=== PATIENT | female | born 2005 | race Caucasian/White ===

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

== ENCOUNTER 2024-01-11 13:47 | Outpatient (CLI) | payer MEDICAID, SELFPAY ==
--- NOTE | 2024-01-11 13:55 | XR_ITS ---
FINAL REPORT CLINICAL HISTORY: Fracture f/u COMPARISON: 02/04/2019 FINDINGS: LEFT ANKLE: Three views of the left ankle were obtained. There is no acute fracture or dislocation. The joint spaces and mortise are intact. There is no soft tissue abnormality. IMPRESSION: No acute bony abnormality. Reviewed, Interpreted and Dictated by Jose Ornelas MD Transcribed by Paris Sutherland Authenticated and [facility]
== END 2024-01-11 23:59 ==
LOC: RAD 13:50
PROVIDERS: PCP Pediatrics; Visit Provider Nurse Practitioner
DX: M25.572 Pain in left ankle and joints of left foot (principal)
CPT/HCPCS: 73610

== ENCOUNTER 2024-02-09 14:52 | Outpatient (CLI) | payer MEDICAID, SELFPAY ==
--- NOTE | 2024-02-09 14:56 | MR_ITS ---
FINAL REPORT CLINICAL HISTORY: ankle sprain. LATERAL SIFDED ANKLE PAIN. PATIENT FELL AND TWISTED ANKLE. HEARD A POP 1 MONTH AGO. FINDINGS: Multiplanar MR imaging of the left ankle was performed without contrast. No acute fracture is identified. There are sclerotic foci in the talus and calcaneus, favor to represent bone islands. No osteochondral lesion is identified. The ligaments are intact without evidence of injury. There is posterior tibial tenosynovitis. The posterior plantar aponeurosis is intact. No significant joint effusion is seen. The musculature is intact. There is no evidence of soft tissue mass or cyst. IMPRESSION: Favor bone islands in the talus and calcaneus. Posterior tibial tenosynovitis. Reviewed, Interpreted and Dictated by Ziggy Orantes III, MD Transcribed by Tamara Kelly Authenticated and [facility]
== END 2024-02-09 23:59 ==
LOC: RAD 14:53
PROVIDERS: PCP Pediatrics; Visit Provider Nurse Practitioner
DX: M25.572 Pain in left ankle and joints of left foot (principal); M79.672 Pain in left foot; S93.402D Sprain of unspecified ligament of left ankle, subsequent encounter; S96.912A Strain of unspecified muscle and tendon at ankle and foot level, left foot, initial encounter
CPT/HCPCS: 73721

== ENCOUNTER 2024-05-16 07:59 | Emergency (ER) | payer MEDICAID, SELFPAY ==
[2024-05-16 08:05] VITALS: BP 108/60; PULSE 107; RESP 19; TEMP 36.8; O2SAT 98; BMI 23.6
--- NOTE | 2024-05-16 08:21 | ED_ITS ---
Discharge Plan Disposition Patient Disposition: Home, Self-Care Condition: Good Prescriptions Prescriptions: New elpcgszvpuniutx-[id number]-GD [Bromfed DM] 2-30-10 mg/5 mL syrup 10 ml PO Q4-6H PRN (Reason: cough/sinus symptoms) Qty: 200 0RF No Action medroxyprogesterone [Depo-Provera Contraceptive] 150 mg/mL Suspension 1 mg IM DIRECTED Referrals Follow up/Referrals: Shahid Jensen [Primary Care Provider] - See instructions Activity Restrictions/Add. Instructions Additional Instructions/Restrictions: Take medication as prescribed. If symptoms persist or worse, return to clinic or go to PCP. Clinical Impressions Clinical Impression: Acute upper respiratory infection Instructions Patient Instructions: DI for Viral Upper Respiratory Infection -- Adult Discharge ED Provider: Shaila Mandel [facility] General Stated complaint: sore throat, runny nose Mode of Arrival: Ambulatory Source of Information: Patient Limitations: No Limitations Time Seen by Provider: 05/16/24 08:15 Description of Symptoms (Recalled from Triage Doc. by RN): PATIENT C/O SORE THROAT, RUNNY NOSE AND COUGH THAT STARTED MONDAY NIGHT HEENT Symptoms (Recalled from RN notes): Yes Resp Symptoms (Recalled from RN notes): Yes Skin Symptoms (Recalled from RN notes): No MS Symptoms (Recalled from RN notes): No Functional Status (Recalled from RN notes): WNL History of Present Illness Provider Complaint: Pt reports a sore throat, cough, and runny nose that has progressively gotten worse since Monday. She states that she has been taking allergy medication for her symptoms. Related Data Home Medications Medication Instructions Recorded Confirmed medroxyprogesterone 150 mg/mL 1 mg IM DIRECTED b/c 11/29/23 05/16/24 intramuscular suspension Previous Rx's Medication Instructions Recorded kfvlpfmjpkyqudk-lvjybhvkucbkyba-UL 10 ml PO Q4-6H PRN cough/sinus 05/16/24 2 mg-30 mg-10 mg/5 mL oral syrup symptoms #200 mL (Bromfed DM) Allergies Allergy/AdvReac Type Severity Reaction Status Date / Time No Known Allergies Allergy Verified 02/19/24 10:51 Worker's Comp Is this a Worker's Comp case?: No [facility] Disclaimer: The information contained in this section may have been updated after the patient was seen, as this information can be updated by other users. Medical History (Updated 05/16/24 @ 08:25 by Shaila Mandel APRN) Depression Anxiety Migraine Surgical History (Updated 05/16/24 @ 08:14 by Sanjana Balbuena RN) History of tympanostomy tube placement Social History Smoking Status: Never smoker alcohol intake: never current occupational status: student Travel in the last 8 weeks: None current occupation: student ROS Obtained: Yes All systems reviewed & no additional complaints except as documented Constitutional Constitutional: Reports system reviewed and no additional complaints, except as documented and Reports malaise Eyes Eyes: Reports system reviewed and no additional complaints, except as documented ENT Ears, Nose, Mouth, and Throat: Reports system reviewed and no additional complaints, except as documented, Reports nasal discharge, Reports odynophagia, Reports post nasal drip and Reports sore throat Cardiovascular Cardiovascular: Reports system reviewed and no additional complaints, except as documented Respiratory Respiratory: Reports system reviewed and no additional complaints, except as documented and Reports cough Gastrointestinal Gastrointestingal: Reports system reviewed and no additional complaints, except as documented and odynophagia Genitourinary Female Genitourinary: Reports system reviewed and no additional complaints, except as documented Musculoskeletal Musculoskeletal: Reports system reviewed and no additional complaints, except as documented Integumentary/Breasts Skin/Breast: Reports system reviewed and no additional complaints, except as documented Neurologic Neurologic: Reports system reviewed and no additional complaints, except as documented Endocrine Endocrine: Reports system reviewed and no additional complaints, except as documented Hematologic/Lymphatic Henatologic/Lymphatic: Reports system reviewed and no additional complaints, except as documented Allergic/Immunologic Allergic/Immunologic: Reports system reviewed and no additional complaints, except as documented Physical Exam General General appearance: alert and in no apparent distress Head Head exam: atraumatic and normocephalic Eye Eye exam: Present normal appearance ENT ENT exam: Present mucous membranes moist Expanded ENT Exam External ear exam: Present normal external inspection Nose exam: Absent sinus tenderness Nasal speculum exam: Bilateral: other (clear drainage noted) Mouth exam: Present normal external inspection Teeth exam: Present normal inspection Throat exam: Present tonsillar erythema and tonsillomegaly Neck Neck exam: Present normal inspection and lymphadenopathy Chest Chest inspection: Present normal inspection and symmetric chest wall rise Respiratory Respiratory exam: Present normal lung sounds bilaterally Cardiovascular Cardiovascular exam: Present regular rate and normal rhythm Abdominal Exam Abdominal exam: Present soft and normal bowel sounds Extremities Exam Extremities exam: Present normal inspection Back Exam Back exam: Present normal inspection Neurological Exam Neurological exam: Present alert and oriented X3 Psychiatric Psychiatric exam: Present normal affect and normal mood Skin Skin exam: Present warm, dry and intact Lymphatic Lymphatic Findings: no adenopathy Medical Decision Making Miguel Inquiry Pt receiving controlled substance: No Miguel was queried for this patient: No Vital Signs: 05/16/24 08:05 Temperature 98.2 F Temperature Source Oral Pulse Rate [Left Brachial] 107 H Respiratory Rate 19 Blood Pressure [Left Arm] 108/60 L Blood Pressure Mean [Left Arm] 76 Blood Pressure Source [Left Arm] Automatic Cuff Blood Pressure Position [Left Arm] Sitting 02 Sat by Pulse Oximetry 98 Oxygen Delivery Method Room Air
[2024-05-16 08:24] LABS: UTC Strep Screen (Rapid) Negative (Negative)
[2024-05-16 08:25] VITALS: BP 108/60; PULSE 107; RESP 19; TEMP 36.8; O2SAT 98
--- NOTE | 2024-05-18 08:48 | PC.NURSE ---
Reviewed strep confirmation results which is negative. No further action is required.
== END 2024-05-16 08:29 | disposition home or self-care (01) ==
PROVIDERS: Emergency Provider Nurse Practitioner Family; PCP Pediatrics
DX: R05.9 Cough, unspecified (principal); J06.9 Acute upper respiratory infection, unspecified
CPT/HCPCS: 87880; 99212; 99214; G0463

== ENCOUNTER 2024-06-29 18:57 | Emergency (ER) | payer BC, SELFPAY ==
--- NOTE | 2024-06-29 19:14 | XR_ITS ---
PROCEDURE INFORMATION: Exam: XR Left Elbow Exam date and time: 06/29/2024 7:10 PM Age: 18 years old Clinical indication: Pain; Elbow; Left TECHNIQUE: Imaging protocol: Radiologic exam of the left elbow. Views: 3 or more views. Total images: 3 COMPARISON: No relevant prior studies available. FINDINGS: Bones/joints: No acute fracture, joint dislocation, or joint effusion. Unremarkable joint spaces. No concerning bone lesions or calcifications. Soft tissues: Unremarkable soft tissues. IMPRESSION: Negative left elbow.
[2024-06-29 19:25] VITALS: BP 144/78; PULSE 108; RESP 18; TEMP 36.7; O2SAT 98; BMI 20.5
--- NOTE | 2024-06-29 19:47 | EXP.UTC ---
Discharge Plan Disposition Patient Disposition: Home, Self-Care Condition: Good Prescriptions Prescriptions: No Action medroxyprogesterone [Depo-Provera Contraceptive] 150 mg/mL Suspension 1 mg IM DIRECTED Referrals Follow up/Referrals: Shahid Jensen [Primary Care Provider] - See instructions Activity Restrictions/Add. Instructions Additional Instructions/Restrictions: sprain- rest Ice with cold pack for 20 minutes remove may repeat for comfort every hour beverley for support and swelling no less in the shower. Be sure not too tight but not to lose either Elevate with arm above your heart as much as possible to help reduce swelling and therefore pain Ibuprofen every 6 hours as needed for pain or inflammation. If needs something more you can take Tylenol every 4 hours as needed as long as her primary care has told he was okayed for you to take both. Follow-up immediately if new or worsening symptoms or no noticeable improvement over the next 3-5 days. call ortho if no improvement Clinical Impressions Clinical Impression: Elbow strain Instructions Patient Instructions: DI for Elbow Sprain Print Language Print Language: Malay Discharge ED Provider: Heather ([facility] [place] General Stated complaint: AO 06-29-24 hit elbow on wall left elbow hurts Mode of Arrival: Ambulatory Source of Information: Patient Limitations: No Limitations Time Seen by Provider: 06/29/24 19:30 Description of Symptoms (Recalled from Triage Doc. by RN): PATIENT C/O PAIN TO LEFT ELBOW AFTER HITTING IT ON THE CORNER OF THE WALL THIS AFTERNOON HEENT Symptoms (Recalled from RN notes): No Resp Symptoms (Recalled from RN notes): No Skin Symptoms (Recalled from RN notes): No MS Symptoms (Recalled from RN notes): Yes Functional Status (Recalled from RN notes): WNL History of Present Illness Provider Complaint: 18 yr old female presents for c/o hit elbow on wall and left elbow hurts Related Data Home Medications ?Medication ?Instructions ?Recorded ?Confirmed medroxyprogesterone 150 mg/mL 1 mg IM DIRECTED b/c 11/29/23 06/29/24 intramuscular suspension Allergies Allergy/AdvReac Type Severity Reaction Status Date / Time No Known Allergies Allergy Verified 02/19/24 10:51 Worker's Comp Is this a Worker's Comp case?: No [facility] Disclaimer: The information contained in this section may have been updated after the patient was seen, as this information can be updated by other users. Medical History (Reviewed 06/29/24 @ 19:57 by Gabriel Romero ([facility]), CAREER [employer]ERY TEACHER) Depression Anxiety Migraine Surgical History (Reviewed 06/29/24 @ 19:57 by Gabriel Romero ([facility]), CAREER DISCOVERY TEACHER) History of tympanostomy tube placement Social History (Reviewed 06/29/24 @ 19:57 by [facility] CAREER DISCOVERY TEACHER) Smoking Status: Never smoker alcohol intake: never current occupational status: student Travel in the last 8 weeks: None current occupation: student ROS Obtained: Yes All systems reviewed & no additional complaints except as documented Constitutional Constitutional: Reports system reviewed and no additional complaints, except as documented Eyes Eyes: Reports system reviewed and no additional complaints, except as documented ENT Ears, Nose, Mouth, and Throat: Reports system reviewed and no additional complaints, except as documented Cardiovascular Cardiovascular: Reports system reviewed and no additional complaints, except as documented Respiratory Respiratory: Reports system reviewed and no additional complaints, except as documented Gastrointestinal Gastrointestingal: Reports system reviewed and no additional complaints, except as documented Musculoskeletal Musculoskeletal: Reports system reviewed and no additional complaints, except as documented, Reports as per HPI, Reports arthralgias, Reports joint swelling, Reports limited range of motion and Reports radiating pain into limb Integumentary/Breasts Skin/Breast: Reports system reviewed and no additional complaints, except as documented Endocrine Endocrine: Reports system reviewed and no additional complaints, except as documented Hematologic/Lymphatic Henatologic/Lymphatic: Reports system reviewed and no additional complaints, except as documented Allergic/Immunologic Allergic/Immunologic: Reports system reviewed and no additional complaints, except as documented Physical Exam General General appearance: alert and in no apparent distress Head Head exam: atraumatic Eye Eye exam: Present normal appearance and PERRL ENT ENT exam: Present normal exam, normal oropharynx, mucous membranes moist and TM's normal bilaterally Respiratory Respiratory exam: Present normal lung sounds bilaterally Cardiovascular Cardiovascular exam: Present regular rate and normal rhythm Expanded Upper Extremity Exam Left: Elbow exam: Present full ROM, tenderness, swelling, ecchymosis and tenderness over radial head Neurological Exam Neurological exam: Present alert and oriented X3 Skin Skin exam: Present warm and intact Medical Decision Making Medical Records Medical records reviewed: Yes I reviewed the patient's medical records. Miguel Inquiry Pt receiving controlled substance: No Miguel was queried for this patient: No Vital Signs: 06/29/24 19:25 Temperature 98.1 F Temperature Source Oral Pulse Rate [Right Brachial] 108 H Respiratory Rate 18 Blood Pressure [Right Arm] 144/78 H Blood Pressure Mean [Right Arm] 100 Blood Pressure Source [Right Arm] Automatic Cuff Blood Pressure Position [Right Arm] Sitting 02 Sat by Pulse Oximetry 98 Oxygen Delivery Method Room Air Orders (Tests/Meds): ORDERS Category Date Time Status Elbow XR left mininum 3 views [XR elbow LT min 3V] Stat Exams 06/29/24 19:14 Taken Radiology Data #1: Image(s): Elbow Image Reviewed: Yes I have reviewed radiologist's interpretation Preliminary Findings: Normal/NAD
[2024-06-29 19:57] VITALS: BP 144/78; PULSE 108; RESP 18; TEMP 36.7; O2SAT 98
== END 2024-06-29 20:04 | disposition home or self-care (01) ==
PROVIDERS: Emergency Provider Nurse Practitioner Family; PCP Pediatrics
DX: S56.912A Strain of unspecified muscles, fascia and tendons at forearm level, left arm, initial encounter (principal); M25.522 Pain in left elbow; W22.8XXA Striking against or struck by other objects, initial encounter
CPT/HCPCS: 73080; 99212; 99213; 99214; G0463

== ENCOUNTER 2025-05-25 19:27 | Emergency (ER) | payer BC, SELFPAY ==
--- OUTSIDE RECORDS SUMMARY | 2025-05-25 19:33 | XMS_ITS | Data Portability ---
[facility] Organization [facility] Address [address] [place] [address] Assessment No assessment recorded. Plan of Treatment Reminders Order Date Submit Date Provider Last Modified By Organization Details Last Modified Time Details Appointments None recorded. Lab test, urine [address], [address], 4 17:30:55 test, urine [address], [address], 4 10:31:46 lipid panel, serum 2023 024 [facility], [address], [place], [address], 4 11:50:05 CMP, serum or plasma 2023 024 [facility], [address], [place], [address], 4 11:50:06 CBC w/ auto diff 2023 024 [facility], [address], [place], [address], 4 11:50:06 TSH, serum or plasma 2023 024 [facility], [address], [place], [address], 4 11:50:07 vitamin D, 25-hydroxy, total, serum 2023 024 [facility], [address], [place], [address], 4 11:50:07 iron + TIBC + ferritin, serum 2023 024 [facility], [address], [place], [address], 4 11:50:05 test, urine [address], [address] [place] [address], [address], 4 17:10:07 test, urine [address], [address] [place] [address], [address], 3 18:18:41 test, urine [address], [address] [place] [address], [address], 3 17:36:07 CT + NG RNA, PCR, unspecified specimen 2022 023 [facility], [address], [place], [address], 3 22:19:55 Referral None recorded. Procedures None recorded. Surgeries None recorded. Imaging None recorded. Medication Orders medroxyprog esterone 150 mg/mL intramuscul ar suspension 2023 024 [email or web address] Not available 4 17:30:55 medroxyprog esterone 150 mg/mL intramuscul ar suspension 2023 024 [facility], [address] [place] [address], [id number], 4 10:31:46 medroxyprog esterone 150 mg/mL intramuscul ar suspension 2023 024 [email or web address] 1 [facility], [address] [place] [address], [id number], 4 17:30:58 sumatriptan 50 mg tablet 2022 023 TOMI [facility], [address] [place] [address], [id number], 3 15:29:45 medroxyprog esterone 150 mg/mL intramuscul ar suspension 2022 023 [email or web address] Not available 3 18:18:41 Depo-Dining Car Steward a 150 mg/mL intramuscul ar syringe 2022 023 [email or web address] 1 [facility], [address] [place] [address], [id number], 4 16:12:47 Patient TargetsNo targets recorded. Patient Instructions Encounter Date Encounter Id Patient Instructions Last Modified By Organization Details Last Modified Time 04/19/2024 [id number] orthostatic bloo d pressure* [email or web address] Not available 04/19/2024 10:31:06 Reason for Referral None Reported. Results Created Date Observation Date Name Description Value Unit Range Abnormal Flag Note LastModifiedBy Organization Detail LastModifiedTime 08/22/20 23 08/23/2023 CHLAM YSAHRAA/ N. GONOR RHOEA E RNA, TMA, UROGE NITAL chlamydia trachomatis RNA, tma, urogenital NOT DETECT ED not detect ed normal Not Available [facility] [address] [place], [address], 08/23/2023 22:19:55 08/22/20 23 08/23/2023 CHLAM YDIA/ N. GONOR RHOEA E RNA, TMA, UROGE NITAL neisseria gonorrhoeae RNA, tma, urogenital NOT DETECT ED not detect ed normal Not Available [facility] [place] [facility] [address] [place], [address], 08/23/2023 22:19:55 08/22/20 23 08/23/2023 CHLAM YDIA/ N. GONOR RHOEA E RNA, TMA, UROGE NITAL comment The lorri tical perfo rmanc e slava cteri stics of this assay , when used to test SureP ath(T M) speci mens have been deter mined by [facility]. The modif icati ons have not been clear ed or appro jessica by the FDA. This assay has been valid ated pursu ant to the CLIA regul ation s and is used for clini yoladne purpo ses. For addit ional infor cecille warren e refer to https ://ed ucati on.qu udayUniversity of [place]. iZoca/f aq/FA Q154 (This link is being provi ded for infor maria eugenia ross/ keren mckoy l purpo ses only. ) Not Available [facility] [place] [facility] [address] [facility], [place], [address], 08/23/2023 22:19:55 08/22/20 23 08/22/2023 pregn deena test, urine HCG negati ve Not Available [address], [address], 08/22/2023 16:24:20 11/07/20 23 11/07/2023 pregn deena test, urine HCG negati ve Not Available [address], [address], 11/06/2023 16:59:31 01/30/20 24 01/30/2024 pregn deena test, urine HCG negati ve Not Available [address], [place], [address], 01/30/2024 16:22:55 04/19/20 24 04/20/2024 IRON, TIBC AND EDITH TIN PANEL iron, total 97 mcg/d L 27-164 normal Not Available [facility] [address] [place], [address], 04/20/2024 11:50:05 04/19/20 24 04/20/2024 IRON, TIBC AND EDITH TIN PANEL iron binding capacity 394 mcg/d L_(ca lc) 271-44 8 normal Not Available [facility] [employer] [place], [address], 04/20/2024 11:50:05 04/19/20 24 04/20/2024 IRON, TIBC AND EDITH TIN PANEL % saturation 25 %_(ca lc) 15-45 normal Not Available [facility] [place] [facility] [address] [place], [address], 04/20/2024 11:50:05 04/19/20 24 04/20/2024 IRON, TIBC AND EDITH TIN PANEL ferritin 65 NG/mL 16-154 normal Not Available [facility] [address] [place], [address], 04/20/2024 11:50:05 04/19/20 24 04/20/2024 LIPID PANEL , STAND LORI cholesterol, total 155 mg/dL <170 normal Not Available [facility] [address] [facility], [place], [address], 04/20/2024 11:50:05 04/19/20 24 04/20/2024 LIPID PANEL , STAND LORI HDL cholesterol 69 mg/dL >45 normal Not Available [facility] [employer] [facility] [address] [facility], [place], [address], 04/20/2024 11:50:05 04/19/20 24 04/20/2024 LIPID PANEL , STAND LORI triglyceride s 50 mg/dL <90 normal Not Available [facility] [address] [place], [address], 04/20/2024 11:50:05 04/19/20 24 04/20/2024 LIPID PANEL , STAND LORI LDL-choleste rol 74 mg/dL _(yolande c) <110 normal LDL-C is now calcu lated using the Kaylyn n-Hop kins calcu latio n, which is a valid ated novel metho d provi ding juan r accur acy than the Fried duong equat ion in the estim ation of LDL-C . Kaylyn ross SS et al. SERAFIN. 2013; 310(1 9): 2061- 2068 (http ://ed ucati on.Qu estPaddle (Mobile [employer]ments). iZoca/f aq/FA Q164) Not Available [facility] [address] [facility], [place], [address], 04/20/2024 11:50:05 04/19/20 24 04/20/2024 LIPID PANEL , STAND LORI chol/HDLC ratio 2.2 (calc ) <5.0 normal Not Available [facility] [address] [place], [address], 04/20/2024 11:50:05 04/19/20 24 04/20/2024 LIPID PANEL , STAND LORI non HDL cholesterol 86 mg/dL _(yolande c) <120 normal For patie nts with diabe damian plus 1 major ASCVD risk facto r, treat ing to a non-H DL-C goal of <100 mg/dL (LDL- C of <70 mg/dL ) is consi dered a thera peuti c optio n. Not Available [facility] [address] [place], [address], 04/20/2024 11:50:05 04/19/20 24 04/20/2024 COMPR EHENS SANDEEP METAB OLIC PANEL glucose 87 mg/dL 65-99 normal Fasti ng refer ence inter marleen Not Available [facility] [address] [place], [address], 04/20/2024 11:50:06 04/19/20 24 04/20/2024 COMPR EHENS SANDEEP METAB OLIC PANEL urea nitrogen (BUN) 14 mg/dL 7-20 normal Not Available [facility] [address] [place], [address], 04/20/2024 11:50:06 04/19/20 24 04/20/2024 COMPR EHENS SANDEEP METAB OLIC PANEL creatinine 0.84 mg/dL 0.50-0 .96 normal Not Available [facility] [address] [place], [address], 04/20/2024 11:50:06 04/19/20 24 04/20/2024 COMPR EHENS SANDEEP METAB OLIC PANEL eGFR 103 mL/mi n/1.7 3m2 > or = 60 normal Not Available [facility] [address] [place], [address], 04/20/2024 11:50:06 04/19/20 24 04/20/2024 COMPR EHENS SANDEEP METAB OLIC PANEL BUN/creatini ne ratio SEE NOTE: (calc ) 6-22 Not Repor colby: BUN and Creat inine are withi n refer ence range . Not Available [facility] [address] [place], [address], 04/20/2024 11:50:06 04/19/20 24 04/20/2024 COMPR EHENS SANDEEP METAB OLIC PANEL sodium 140 mmol/ L 135-14 6 normal Not Available [facility] [address] [place], [address], 04/20/2024 11:50:06 04/19/20 24 04/20/2024 COMPR EHENS SANDEEP METAB OLIC PANEL potassium 4.1 mmol/ L 3.8-5. 1 normal Not Available [facility] [address] [place], [address], 04/20/2024 11:50:06 04/19/20 24 04/20/2024 COMPR EHENS SANDEEP METAB OLIC PANEL chloride 105 mmol/ L 98-110 normal Not Available [facility] [address] [place], [address], 04/20/2024 11:50:06 04/19/20 24 04/20/2024 COMPR EHENS SANDEEP METAB OLIC PANEL carbon dioxide 27 mmol/ L 20-32 normal Not Available [facility] [address] [place], [address], 04/20/2024 11:50:06 04/19/20 24 04/20/2024 COMPR EHENS SANDEEP METAB OLIC PANEL calcium 10.0 mg/dL 8.9-10 .4 normal Not Available [facility] [address] [place], [address], 04/20/2024 11:50:06 04/19/20 24 04/20/2024 COMPR EHENS SANDEEP METAB OLIC PANEL protein, total 7.6 g/dL 6.3-8. 2 normal Not Available [facility] [address] [place], [address], 04/20/2024 11:50:06 04/19/20 24 04/20/2024 COMPR EHENS SANDEEP METAB OLIC PANEL albumin 5.0 g/dL 3.6-5. 1 normal Not Available [facility] [address] [place], [address], 04/20/2024 11:50:06 04/19/20 24 04/20/2024 COMPR EHENS SANDEEP METAB OLIC PANEL globulin 2.6 g/dL_ (calc ) 2.0-3. 8 normal Not Available [facility] [address] [place], [address], 04/20/2024 11:50:06 04/19/20 24 04/20/2024 COMPR EHENS SANDEEP METAB OLIC PANEL albumin/glob ulin ratio 1.9 (calc ) 1.0-2. 5 normal Not Available [facility] [address] [facility] [place], [address], 04/20/2024 11:50:06 04/19/20 24 04/20/2024 COMPR EHENS SANDEEP METAB OLIC PANEL bilirubin, total 0.6 mg/dL 0.2-1. 1 normal Not Available [facility] [address], [place], [address], 04/20/2024 11:50:06 04/19/20 24 04/20/2024 COMPR EHENS SANDEEP METAB OLIC PANEL alkaline phosphatase 74 U/L 36-128 normal Not Available [facility] [address] [place], [address], 04/20/2024 11:50:06 04/19/20 24 04/20/2024 COMPR EHENS SANDEEP METAB OLIC PANEL AST 22 U/L 12-32 normal Not Available [facility] [address] [place], [address], 04/20/2024 11:50:06 04/19/20 24 04/20/2024 COMPR EHENS SANDEEP METAB OLIC PANEL ALT 30 U/L 5-32 normal Not Available [facility] [address] [place], [address], 04/20/2024 11:50:06 04/19/20 24 04/20/2024 CBC (INCL UDES DIFF/ PLT) white blood cell count 4.6 thous and/u L 3.8-10 .8 normal Not Available [facility] [address] [place], [address], 04/20/2024 11:50:06 04/19/20 24 04/20/2024 CBC (INCL UDES DIFF/ PLT) red blood cell count 4.91 suzy on/uL 3.80-5 .10 normal Not Available [facility] [address] [facility] [place], [address], 04/20/2024 11:50:06 04/19/20 24 04/20/2024 CBC (INCL UDES DIFF/ PLT) hemoglobin 14.4 g/dL 11.7-1 5.5 normal Not Available [facility] [address] [facility], [place], [address], 04/20/2024 11:50:06 04/19/20 24 04/20/2024 CBC (INCL UDES DIFF/ PLT) hematocrit 43.5 % 35.0-4 5.0 normal Not Available [facility] [address] [facility] [place], [address], 04/20/2024 11:50:06 04/19/20 24 04/20/2024 CBC (INCL UDES DIFF/ PLT) MCV 88.6 fL 80.0-1 00.0 normal Not Available [facility] [address] [facility] [place], [address], 04/20/2024 11:50:06 04/19/20 24 04/20/2024 CBC (INCL UDES DIFF/ PLT) MCH 29.3 pg 27.0-3 3.0 normal Not Available [facility] [address] [facility] [place], [address], 04/20/2024 11:50:06 04/19/20 24 04/20/2024 CBC (INCL UDES DIFF/ PLT) MCHC 33.1 g/dL 32.0-3 6.0 normal Not Available [facility] [place] [facility] [address], [place], [address], 04/20/2024 11:50:06 04/19/20 24 04/20/2024 CBC (INCL UDES DIFF/ PLT) RDW 12.7 % 11.0-1 5.0 normal Not Available [facility] [place] [facility] [address], [place], [address], 04/20/2024 11:50:06 04/19/20 24 04/20/2024 CBC (INCL UDES DIFF/ PLT) platelet count 231 thous and/u L 140-40 0 normal Not Available [facility] [place] [facility] [address], [place], [address], 04/20/2024 11:50:06 04/19/20 24 04/20/2024 CBC (INCL UDES DIFF/ PLT) MPV 11.2 fL 7.5-12 .5 normal Not Available [facility] [place] [facility] [address], [place], [address], 04/20/2024 11:50:06 04/19/20 24 04/20/2024 CBC (INCL UDES DIFF/ PLT) absolute neutrophils 2714 cells /uL 1500-7 800 normal Not Available [facility] [place] [facility] [address], [place], [address], 04/20/2024 11:50:06 04/19/20 24 04/20/2024 CBC (INCL UDES DIFF/ PLT) absolute lymphocytes 1412 cells /uL 850-39 00 normal Not Available [facility] [place] [facility] [address], [place], [address], 04/20/2024 11:50:06 04/19/20 24 04/20/2024 CBC (INCL UDES DIFF/ PLT) absolute monocytes 396 cells /uL 200-95 0 normal Not Available [facility] [place] [facility] [address], [place], [address], 04/20/2024 11:50:06 04/19/20 24 04/20/2024 CBC (INCL UDES DIFF/ PLT) absolute eosinophils 69 cells /uL 15-500 normal Not Available [facility] [place] [facility] [address], [place], [address], 04/20/2024 11:50:06 04/19/20 24 04/20/2024 CBC (INCL UDES DIFF/ PLT) absolute basophils 9 cells /uL 0-200 normal Not Available [facility] [place] [facility] [address], [place], [address], 04/20/2024 11:50:06 04/19/20 24 04/20/2024 CBC (INCL UDES DIFF/ PLT) neutrophils 59 % normal Not Available [facility] [place] [facility] [address], [place], [address], 04/20/2024 11:50:06 04/19/20 24 04/20/2024 CBC (INCL UDES DIFF/ PLT) lymphocytes 30.7 % normal Not Available [facility] [place] [facility] [address], [place], [address], 04/20/2024 11:50:06 04/19/20 24 04/20/2024 CBC (INCL UDES DIFF/ PLT) monocytes 8.6 % normal Not Available [facility] [place] [facility] [address], [place], [address], 04/20/2024 11:50:06 04/19/20 24 04/20/2024 CBC (INCL UDES DIFF/ PLT) eosinophils 1.5 % normal Not Available [facility] [place] [facility] [address], [place], [address], 04/20/2024 11:50:06 04/19/20 24 04/20/2024 CBC (INCL UDES DIFF/ PLT) basophils 0.2 % normal Not Available [facility] [address] [place], [address], 04/20/2024 11:50:06 04/19/20 24 04/20/2024 TSH W/REF EREN TO FT4 TSH w/reflex to FT4 1.73 mIU/L normal Refer ence Range 1-19 Years 0.50- 4.30 Pregn deena Range s First trime ster 0.26- 2.66 Secon d trime ster 0.55- 2.73 Third trime ster 0.43- 2.91 Not Available [facility] [address] [place], [address], 04/20/2024 11:50:07 04/19/20 24 04/20/2024 VITAM IN D,25- OH,TO YANETH,I A vitamin D,25-oh,tota l,ia 30 NG/mL 30-100 normal Vitam in D Statu s 25-OH Vitam in D: Defic iency : <20 ng/mL Insuf ficie ncy: 20 - 29 ng/mL Optim al: > or = 30 ng/mL For 25-OH Vitam in D testi ng on patie nts on D2-almonte pplem entat ion and patie nts for whom quant itati on of D2 and D3 fract ions is requi red, the [facility] eD(TM ) 25-OH VIT D, (D2,D 3), LC/MS /MS is recom cleo d: order code 01255 (lola ents >2yrs ). See Note 1 Note 1 For addit ional infor cecille warren refer to http: //salvador rojasQue stDia gnost ics.c om/fa q/FAQ 199 (This link is being provi ded for infor maria eugenia cowart/ educscot blair purpo ses only. ) Not Available [facility] [address] [facility], [place], [address], 04/20/2024 11:50:07 04/19/20 24 04/19/2024 pregn deena test, urine HCG negati ve Not Available [address], [address], 04/19/2024 08:32:12 07/05/20 24 07/05/2024 pregn deena test, urine HCG negati ve Not Available [address], [address], 07/05/2024 16:33:46 Result Notes None recorded. Problems Name Problem SNOMED Code Status Onset Date Resolution Date Notes Provider Name and Address Organization Details Recorded Time Uses depot contrace ption 727117962 Completed 202012/07/2021 Not Available [facility] 2 22:23:14 Normal body mass index 16662836 Active 2021 Problem Code: Z68.52; Problem Code Type: ICD-10; Not Available [facility] 2 22:23:15 Normal body mass index 73728370 Completed 202012/07/2021 Problem Code: Z68.52; Problem Code Type: ICD-10; Not Available [facility] 2 22:23:15 Uses depot contrace ption 847588847 Active 2020 Not Available [facility] 2 22:23:15 Normal body mass index 01427537 Completed 202012/07/2021 Problem Code: Z68.52; Problem Code Type: ICD-10; Not Available [facility] 2 22:23:15 Problem Notes None recorded. Procedures Surgical History Date Name Laterality Status Provider Name and Address Organization Details Recorded Time tympanostomy completed Not Available [facility] 022 22:56:18 Imaging Results None recorded. Procedure Notes None recorded. Medical Equipment None Reported. Allergies No known drug allergies Medications Name Sig Start Date Stop Date Status Note LastModified by Organization Details LastModified Time neomycin-po lymyxin-hyd rocort 3.5 mg/mL-10,00 0 unit/mL-1 % ear solution PLACE 3 DROPS INTO THE AFFECTED EAR 3 TIMES EACH DAY FOR 10 DAYS 08/09 completed Not Available Not Available Not Available nystatin 100,000 unit/mL oral suspension 03/31 completed Not Available Not Available Not Available prednisone 10 mg tablet TAKE 3 TABLETS 1 TIME EACH DAY FOR 5 DAYS 04/19 completed Not Available Not Available Not Available cetirizine 10 mg tablet TAKE 1 TABLET 1 TIME EACH DAY active Not Available Not Available No t Available hydrocodone 5 mg-acetamin ophen 325 mg tablet TAKE 1 TABLET EVERY 6 HOURS NEEDED active Not Available Not Available No t Available sumatriptan 50 mg tablet TAKE 1 TABLET 1 TIME EACH DAY NEEDED FOR MIGRAINE HEADACHE active Not Available Not Available No t Available topiramate 25 mg tablet TAKE 1 TABLET 1 TIME EACH DAY active Not Available Not Available No t Available ciprofloxac in 500 mg tablet TAKE 1 TABLET EVERY 12 HOURS FOR 10 DAYS active Not Available Not Available No t Available sulfamethox azole 800 mg-trimetho prim 160 mg tablet TAKE 1 TABLET 2 TIMES EACH DAY FOR 3 DAYS active Not Available Not Available No t Available tamsulosin 0.4 mg capsule TAKE 1 CAPSULE 1 TIME EACH DAY 1/2 AN HOUR AFTER THE SAME MEAL EACH DAY active Not Available Not Available No t Available benzonatate 100 mg capsule TAKE 1 CAPSULE 3 TIMES EACH DAY NEEDED 03/31 completed Not Available Not Available Not Available ibuprofen 400 mg tablet TAKE 1 TABLET EVERY 6 HOURS NEEDED FOR MODERATE PAIN 08/09 completed Not Available Not Available Not Available Adderall XR 10 mg capsule,ext ended release TAKE 1 CAPSULE 1 TIME EACH DAY IN THE MORNING 11/07 completed Not Available Not Available Not Available montelukast 10 mg tablet TAKE 1 TABLET 1 TIME EACH DAY IN THE EVENING 04/19 completed Not Available Not Available Not Available diclofenac sodium 50 mg tablet,elton yed release TAKE 1 TABLET 2 TIMES EACH DAY FOR 14 DAYS. DO NOT CRUSH, CHEW OR SPLIT. 08/09 completed Not Available Not Available Not Available methylpredn isolone 4 mg tablets in a dose pack TAKE ACCORDING TO PACKAGE INSTRUCTI ONS 01/29 completed Not Available Not Available Not Available fluticasone propionate 50 mcg/actuati on nasal spray,suspe nsion SPRAY 2 TIMES IN EACH NOSTRIL 1 TIME EACH DAY active Not Available Not Available No t Available medroxyprog esterone 150 mg/mL intramuscul ar suspension inject 0.33 millilite r (50 mg) by intramusc ular route once weekly forat least 6 months 2023 active Not Available Not Available Not Avai lable Depo-Dining Car Steward a 150 mg/mL intramuscul ar syringe Inject 1 mL every 3 months by intramusc ular route. 01/29 completed Not Available Not Available Not Available escitalopra m 10 mg tablet TAKE 1 TABLET 1 TIME EACH DAY 11/07 completed Not Available Not Available Not Available escitalopra m 5 mg tablet TAKE 1 TABLET 1 TIME EACH DAY 03/31 completed Not Available Not Available Not Available ID NOW COVID-19 Test Kit TEST DIRECTED TODAY 08/09 completed Not Available Not Available Not Available Vitals Date Recorded Body height Body mass index (BMI) [Percentile] Per age and sex Body mass index (BMI) Body weight Heart rate Oxygen saturation Oxygen saturation in Arterial blood by Pulse oximetry Systolic And Diastolic Provider Name and Address Organization Details Last Updated DateTime 4 170.18 cm 67 % 23.2 kg/m2 09182.6 7 g 77 /min 98 % 98 % 109/70 mm[Hg] Elza [employer] 4 16:20:17 Date Recorded Body height Body mass index (BMI) Body mass index (BMI) [Percentile] Per age and sex Body weight Heart rate Oxygen saturation Oxygen saturation in Arterial blood by Pulse oximetry Systolic And Diastolic Systolic And Diastolic Systolic And Diastolic Systolic And Diastolic Provider Name and Address Organization Details Last Updated DateTime 4 170.18 cm 23.2 kg/m2 66 % 40284.3 7 g 85 /min 98 % 98 % 110/70 mm[Hg] 110/62 mm[Hg] 108/60 mm[Hg] 102/62 mm[Hg] Elza [employer] 4 09:07:12 Date Recorded Body height Body mass index (BMI) Body mass index (BMI) [Percentile] Per age and sex Body weight Heart rate Oxygen saturation Oxygen saturation in Arterial blood by Pulse oximetry Systolic And Diastolic Provider Name and Address Organization Details Last Updated DateTime 4 170.18 cm 24.4 kg/m2 75 % 12593.4 1 g 78 /min 96 % 96 % 106/70 mm[Hg] Elzadanielle Yanes [employer] 4 16:33:07 Date Recorded Body height Body mass index (BMI) Body mass index (BMI) [Percentile] Per age and sex Body weight Body temperature Heart rate Oxygen saturation Oxygen saturation in Arterial blood by Pulse oximetry Systolic And Diastolic Provider Name and Address Organization Details Last Updated DateTime 3 170.18 cm 20.9 kg/m2 42 % 76629.5 g 97.8 [degF] 71 /min 99 % 99 % 100/55 mm[Hg] SIRENA MYNEIL [employer] 3 16:23:18 Date Recorded Body height Body mass index (BMI) [Percentile] Per age and sex Body mass index (BMI) Body weight Oxygen saturation Oxygen saturation in Arterial blood by Pulse oximetry Heart rate Systolic And Diastolic Provider Name and Address Organization Details Last Updated DateTime 3 170.18 cm 56 % 22.1 kg/m2 42065.5 2 g 98 % 98 % 81 /min 127/78 mm[Hg] Elza Yanes [employer] 3 16:38:22 Social History Question Answer Notes LastModified by Organizat ion Details LastModified Time Tobacco Smoking Status Never Smoker BECKY prasad [employer] 08/09/2022 08:15:21 Is Your Home Air Conditioned? Yes Information not available 03/31/2023 Are You Blind Or Do You Have Difficulty Seeing? No Information n ot available 03/31/2023 What Is Your Level Of Caffeine Consumption? Heavy Information not available 03/31/2023 In The 14 Days Before Symptom Onset, Have You Had Close Contact With A Laboratory-confirm ed COVID-19 While That Case Was Ill? No Information n ot available 03/31/2023 In The 14 Days Before Symptom Onset, Have You Had Close Contact With A Person Who Is Under Investigation For COVID-19 While That Person Was Ill? No Information not available 03/31/2023 Have You Been To An Area Known To Be High Risk For COVID-19? No Information not available 03/31/2023 Are You Deaf Or Do You Have Serious Difficulty Hearing? No Information not available 03/31/2023 What Type Of Diet Are You Following? REGULAR Information n ot available 08/22/2023 What Grade Are You In? [id number] Information not available 08/09/2022 What Is Your Home Situation? Mother [email or web address] Information not available 08/09/2022 What Was The Date Of Your Most Recent Tobacco Screening? 07/05/2024 Information not available 07/05/2024 What Is Your Relationship Status? Single [email or web address] Information not available 08/09/2022 What Is The Name Of Your School? [employer] [email or web address] Information not available 08/09/2022 Do You Use Your Seat Belt Or Car Seat Routinely? Yes Information not available 03/31/2023 Do You Have Smoke And Carbon Monoxide Detectors In Your Home? Yes Information not available 03/31/2023 Do You Use Sunscreen Routinely? Yes Information not available 03/31/2023 Have You Recently Traveled Abroad? No Information not available 03/31/2023 Do You Have Difficulty Walking Or Climbing Stairs? No Information not available 03/31/2023 Are You Currently In School? Yes [email or web address] Information not available 08/09/2022 Do You Have Any Dietary Restrictions? No Information not available 08/22/2023 Sex: Female Functional Status Question Answer Note LastModified by Organizat ion Details LastModified Time Do you use any illicit or recreational drugs? No Information not available 03/31/2023 Do you or have you ever used any other forms of tobacco or nicotine? No Information not available 08/22/2023 What is your level of alcohol consumption? None Information not available 03/31/2023 Do you have transportation difficulties? No Information not available 03/31/2023 Are you able to walk? YESWOREST Information not available 03/31/2023 Do you have difficulty doing errands alone? No Information not available 03/31/2023 Are you able to care for yourself? No Information not available 03/31/2023 Do you have difficulty dressing or bathing? No Information not available 03/31/2023 Mental Status Question Answer Note LastModified by Organization D etails LastModified Time Do you have difficulty concentrating, remembering or making decisions? No Information no t available 03/31/2023 Family History Relationship Description Onset Age of this Age Resolved Age Notes LastModified by Organization Details LastModified Time Mother Family history of Depression [email or web address] Not available 07/22 16:39:20 Mother Family history of Anxiety state [email or web address] Not available 08/09 16:39:25 Unspecified Relation Family history of diabetes mellitus type 2 [email or web address] Not available 08/09 16:39:12 Father Family history of Hypertension [email or web address] Not available 16:39:05 Medical History No medical history recorded. Gynecological History Statement/Question Response Menses Monthly N Date of Last Pap Smear Current Control Method Depo-Dining Car Steward a Most Recent Mammogram Obstetrics History GPAL:G 0 P 0 0 0 0 Immunizations Vaccine Type Date Status Note Provider Nam e and Address Organization Details Recorded Time Hib (PRP-T) 4 completed Elza prasad, [employer] 04/19/2024 08:31:32 HPV9 6 completed Not Available [facility] 07/26/2022 23:20:56 HPV9 6 completed Not Available [facility] 07/26/2022 23:20:56 HPV9 6 completed Not Available [facility] 07/26/2022 23:20:56 Pneumococcal conjugate PCV 13 5 completed Not Available [facility] 07/26/2022 23:20:56 Pneumococcal conjugate PCV 13 5 completed Not Available [facility] 07/26/2022 23:20:56 Pneumococcal conjugate PCV 13 5 completed Not Available [facility] 07/26/2022 23:20:56 Pneumococcal conjugate PCV 13 4 completed Not Available [facility] 07/26/2022 23:20:56 DTaP 5 completed Not Available [facility] 07/26/2022 23:20:56 DTaP 5 completed Not Available [facility] 07/26/2022 23:20:56 DTaP 8 completed BECKY ROLDAN null, [employer] 01/10/2023 17:14:35 DTaP 4 completed Not Available [facility] 07/26/2022 23:20:56 MMR 6 completed Not Available [facility] 07/26/2022 23:20:56 MMRV 8 completed BECKY ROLDAN null, [employer] 01/10/2023 17:14:35 IPV 5 completed Not Available [facility] 07/26/2022 23:20:56 IPV 5 completed Not Available [facility] 07/26/2022 23:20:56 IPV 8 completed Not Available [facility] 07/26/2022 23:20:57 IPV 4 completed Not Available [facility] 07/26/2022 23:20:57 Tdap 6 completed Not Available [facility] 07/26/2022 23:20:57 varicella 5 completed Not Available [facility] 07/26/2022 23:20:57 Hep B, adolescent or pediatric 5 completed BECKY ROLDAN null, [employer] 01/10/2023 17:14:35 Hep B, adolescent or pediatric 5 completed BECKY ROLDAN null, [employer] 01/10/2023 17:14:35 Hep B, adolescent or pediatric 4 completed Not Available [facility] 07/26/2022 23:20:57 Hep B, adolescent or pediatric 4 completed BECKY ROLDAN null, [employer] 01/10/2023 17:14:35 Meningococcal MCV4O 2 completed BECKY JAMAR null, [employer] 01/10/2023 17:14:35 Hib, unspecified formulation 6 completed Elza Jansen null, [employer] 04/19/2024 08:31:32 Hib, unspecified formulation 5 completed Elza Jansen null, [employer] 04/19/2024 08:31:32 Hib, unspecified formulation 5 completed Elza Jansen null, [employer] 04/19/2024 08:31:32 Hib, unspecified formulation 4 completed Elza Jansen null, [employer] 04/19/2024 08:31:32 MMR 8 completed Elza Jansen null, [employer] 04/19/2024 08:31:32 DTaP-IPV 8 completed Elza Jansen null, [employer] 04/19/2024 08:31:32 varicella 8 completed Elza Jansen null, [employer] 04/19/2024 08:31:32 Influenza, split virus, trivalent, preservative 8 completed Elza Jansen null, [employer] 04/19/2024 08:31:32 Influenza, split virus, trivalent, preservative 9 completed Elza Jansen null, [employer] 04/19/2024 08:31:32 Hep A, adult 6 completed Elza Jansen null, [employer] 04/19/2024 08:31:32 Hep A, adult 6 completed Elza Jansen null, [employer] 04/19/2024 08:31:32 Meningococcal MCV4O 6 completed Elza prasad, [employer] 04/19/2024 08:31:32 DTaP, 5 pertussis antigens 6 completed Elza prasad, [employer] 04/19/2024 08:31:32 DTaP-Hep B-IPV 5 completed Elza prasad, [employer] 04/19/2024 08:31:32 DTaP-Hep B-IPV 5 completed Elza prasad, [employer] 04/19/2024 08:31:32 DTaP-Hep B-IPV 4 completed Elza prasad, [employer] 04/19/2024 08:31:32 Past Encounters Encounter ID Performer Location Encounter Start Date Encounter Closed Date Diagnosis/Indication Diagnosis SNOMED-CT Code Diagnosis ICD10 Code Diagnosis Note [id number] Janel Tonio [place] [address] 0 08/09/2022 16:19:42 08/09/2022 17:02:36 Uses depot contraception 444784357 Z30.42 [id number] Shaila Mandel APRN [place] [id number] 08/17/2022 08:16:07 08/17/2022 14:25:23 Acute upper respiratory infection [id number] J06.9 [id number] Janel Elizalde [place] [id number] 10/25/2022 16:15:49 10/25/2022 16:45:27 Uses depot contraception 195287152 Z30.42 Normal bod y mass index 08037948 Z68.52 [id number] [place] [address] 01/10/2023 16:57:40 01/10/2023 17:49:46 Uses depot contraception 814646037 Z30.42 Body mass index 20-24 - normal 650899283 Z68.21 [id number] Janel Elizalde [place] [address] 0 03/31/2023 11:15:10 03/31/2023 11:57:59 Contraception care management 133831286 Z30.9 Body mass index 20-24 - normal 751698588 Z68.21 [id number] Janel Elizalde [place] [address] 0 06/16/2023 11:25:04 06/16/2023 14:57:04 Contraception care management 788824765 Z30.9 Body mass index 20-24 - normal 017470111 Z68.21 [id number] Janel Elizalde [place] [address] 0 08/22/2023 16:15:02 08/22/2023 16:34:07 Uses depot contraception 218110903 Z30.42 Body mass index 20-24 - normal 904110430 Z68.21 [id number] Janel Elizalde [place] [address] 0 11/07/2023 16:20:16 11/07/2023 17:01:30 Surveillance of contraception 939532668 Z30.40 Migraine without aura 56 096609 G43.009 Body mass index 20-24 - normal 635529250 Z68.21 [id number] Janel Elizalde [place] [address] 0 01/30/2024 16:05:46 01/30/2024 16:33:37 Contraception care management 440393656 Z30.9 Body mass index 20-24 - normal 888374017 Z68.21 [id number] Janel Elizalde [place] [address] 0 04/19/2024 08:24:31 04/19/2024 08:58:52 Contraception care management 253763411 Z30.9 Dizziness 932244276 R42 Fatigue 80228939 R53.83 Vitamin D deficiency 347 99858 E55.9 Hyperlipidemia 03991054 E78.5 Iron defic iency anemia 91137546 D50.9 Body mass index 20-24 - normal 422829570 Z68.21 [id number] Janel Elizalde APRN [place] [id number] 07/05/2024 16:24:56 07/05/2024 16:41:43 Contraception care management 880080330 Z30.9 Body mass index 20-24 - normal 555865916 Z68.21 Health Concerns Section Related Observation LastModified by Organization Detai ls LastModified Time None Recorded Concern Status LastModified by Organization Details LastModified Time None Recorded Advance Directives Directive None Recorded Payers Insurance Date Sequence Insurance Name Policy Number Policy Andrew Covered Member ID Andrew Member ID Guarantor Name 07/05/2024 1 [employer] (MEDICAID REPLACEMENT - HMO) Kemi Ohp [id number] Kemi Oh 09/21/2024 [place] Kemi Ohp [id number] Kemi Oh 07/05/2024 1 [employer] Kemi Ohp [id number] Kemi Oh 10/25/2022 1 [employer] (PPO) Ana Maria Ozzy [facility] [id number] Kemi [facility] 09/20/2024 1 [place] [id number] Galileo Daisy [id number] Kemi [facility] Notes Date Note Type Note Provider Name and Address Organization Details Recorded Time 08/22/2023 text/html pt here today fo r depo BC injection. pt states shes doing well on current BC and has no new complaints today. Janel Elizalde APRN [address] [place] [address], [phone], [facility] [employer] [facility] 08/22/2023 17:36:32 11/07/2023 text/html pt here today fo r depo control. pt states shes doing well on current BC. pt states that she has been having some headaches for the past few weeks that is typically on her left side and feels like stabbing and she is sensitive to light and sound. she takes ibuprofen but the only thing that really helps is if she lays down and takes a nap. pt states her last eye appt was last year and she does have a script but it isnt very strong but she doesnt wear them. pt states that she has had to go into a cool dark room at work a couple of times for the headache to go away. neuro assessment WNL. pt states that she does drink alot of soda but drinks 4 large cups of water per day as well. educated pt on foods to eat and foods to avoid for migraines. ordered sumatriptan. educated pt on new med. pt voiced understanding. return for worsening symptoms. Janel Elizalde APRN [address] [place], [address], [employer] 11/07/2023 18:16:42 01/30/2024 text/html pt here today fo r depo bc injection. pt states shes doing well on current bc and has no new complaints today. Elza prasad, [employer] 01/30/2024 17:31:11 04/19/2024 text/html pt here today fo r depo BC injection. pt states she doing well on current BC. pt states that the migraine med has been working well for her migraines. pt states that she has noticed that when she bends over or when she gets up from a sitting position she gets dizzy. it only lasts for a few seconds and then she is fine . orthostatic BP WNL. i will order lab work today. Janel Elizalde APRN [address] [place], [address], [email or web address] 04/19/2024 10:31:33 07/05/2024 text/html pt here today fo r depo BC. pt states that she is doing well on current BC and has no new complaints today. UPT neg. Janel Elizalde APRN [address] [place], [address], [email or web address] 07/05/2024 16:55:33 OBGyn Episode No OBEpisode recorded.
--- OUTSIDE RECORDS SUMMARY | 2025-05-25 19:33 | XMS_ITS | Clinical Summary ---
Author Organization Healthcare Address [address] [place] [address] Care Team Providers Care Numerical Control Machine Operator Name Role Phone Shahid Jensen MD Primary Care Provider [phone] Allergies No known active allergies Medications medroxyPROGESTER one (Depo-Provera) 150 MG/ML suspension prefilled syringe injection syringe INJECT 1 ML INTO A MUSCLE EVERY 3 MONTHS 02/24/2021 Active Family History Medical History Relation Name Comments No Known Problems Father No Known Problems Mother Relation Name Status Comments Father Mother Social History Tobacco Use Types Packs/Day Years Used Date Smoking Tobacco: Never Smokeless Tobacco: Never Comments Unknown Sex and Gender Information Value Date Recorded Sex Assigned at Not on file Legal Sex Female 8:12 PM EDT Gender Identity Not on file Sexual Orientation Not on file Last Filed Vital Signs Vital Sign Reading Time Taken Comments Blood Pressure 119/76 01/03/2022 7:34 AM EST Pulse 84 01/03/2022 7:34 AM EST Temperature - - Respiratory Rate 20 01/03/2022 7:34 AM EST Oxygen Saturation 98% 01/03/2022 7:34 AM EST Inhaled Oxygen Concentration - - Weight 56.7 kg (125 lb) 01/03/2022 7:34 AM EST Height 172.7 cm (5' 8 ) 01/03/2022 7:34 AM EST Body Mass Index 19.01 01/03/2022 7:34 AM EST Plan of Treatment Health Maintenance Due Date Last Done Comments [facility]-Depression Screening 2004 [facility]-/Child/Adol SDOH Screenings 2004 [facility]- SDOH Screenings 2022 [facility]-Adult SDOH Screenings 2022 [id number] Vaccine (2 season) 2024 05/09/2023 [facility]-Influenza Vaccine (#1) 07/21/202509/14, 08/29/2019, 08/03/2018 [facility]-DTaP,Tdap,and Td Vaccines (7 - Td or Tdap) 02/09/2026 02/10/2016, 09/18/2008, 09/18/2008, Additional history exists [facility]-Zoster Vaccines (1 of 2) 2054 09/18/2008, 12/19/2007, 09/07/2005 [facility]-Hepatitis B Vaccines Completed 005, 03/09/2005, 2004, Additional history exists [facility]-Pneumococcal Vaccine: Pediatrics (0 to 5 Years) and At-Risk Patients (6 to 49 Years) Completed 09/07/2005, 03/09/2005, 2004, Additional history exists [facility]-HIB Vaccines Completed 11/28/2005, , 2004, Additional history exists [facility]-Hepatitis A Vaccines Completed 09/21/2006, 02/18 [facility]-IPV Vaccines Completed 09/18/2008, , 03/09/2005, Additional history exists [facility]-Varicella Vaccines Completed 8, 12/19/2007, 09/07/2005 HPV Vaccines Completed 08/15/2016, 02/19, 02/10/2016 [facility]-Rotavirus Vaccines Aged Out No lo nger eligible based on patient's age to complete this topic Insurance [employer] Care Teams Numerical Control Machine Operator Relationship Specialty Start Date End Date Shahid Jensen MD [address] [place] [address] PCP - General 01/03/22
--- OUTSIDE RECORDS SUMMARY | 2025-05-25 19:33 | XMS_ITS | Clinical Summary ---
Author Organization [employer] ([place], [place], [place], [place]) Address [address] [place] [address] Care Team Providers Care Floor Specialist Name Role Phone [facility], [facility] Primary Care Provider Allergies No known active allergies Medications No known medications Social History Tobacco Use Types Packs/Day Years Used Date Smoking Tobacco: Never Passive Smoke Exposure: Never Smokeless Tobacco: Never Tobacco Cessation:Counseling Given: Not Answered Alcohol Use Standard Drinks/Week Comments Never 0 (1 standard drink = 0.6 oz pur e alcohol) Comments Unknown Sex and Gender Information Value Date Recorded Sex Assigned at Not on file Legal Sex Female 5:18 PM CDT Gender Identity Not on file Sexual Orientation Not on file Last Filed Vital Signs Vital Sign Reading Time Taken Comments Blood Pressure 112/65 09/24/2024 9:15 AM EST Pulse 82 09/24/2024 9:15 AM EST Temperature 36.9 C (98.5 F) 09/24/2024 8:44 AM EST Respiratory Rate 16 09/24/2024 8:44 AM EST Oxygen Saturation 95% 09/24/2024 9:15 AM EST Inhaled Oxygen Concentration - - Weight 65.8 kg (145 lb) 09/24/2024 8:44 AM EST Height 172.7 cm (5' 8 ) 09/24/2024 8:44 AM EST Body Mass Index 22.05 09/24/2024 8:44 AM EST Plan of Treatment Health Maintenance Due Date Last Done Comments Depression Screening (12+) 2016 HIV Screening 2019 Meningococcal B Vaccine (1 o f 2 - Standard) 2020 Hepatitis C Screening 2022 COVID-19 VACCINE (2023-2 5 season) 2024 Influenza Vaccine (#1) 2025 Tobacco Cessation Counseling and Screening (12+) 09/24/2025 09/24/2024 DTAP/TDAP/TD VACCINES (7 - T d or Tdap) 02/09/2026 02/10/2016, 09/18/2008, 09/18/2008, Additional history exists Pneumococcal Vaccine: 0-49 Years Completed 09/07/2005, 03/09/2005, 2004, Additional history exists Insurance [facility] ISABELLA RODRÍGUEZ [id number] BLUE CROSS[employer]BLUE [employer]IELD Care Teams Floor Specialist Relationship Specialty Start Date End Date [facility] Connection, [facility] Connection Find-a-Doc [place], [place] [id number] PCP - General 09/25/24
--- OUTSIDE RECORDS SUMMARY | 2025-05-25 19:33 | XMS_ITS | Referral Summary ---
Author Organization [employer] ([place], [place], [place], [place]) Address [address] [place] [address] Care Team Providers Care Business Team Leader Name Role Phone [facility], [facility] Primary Care Provider Allergies No [...] 09/24/2024 8:44 AM EST Plan of Treatment Not on file Insurance ISABELLA TERAN [id number] [employer] Care Teams Business Team Leader Relationship Specialty Start Date End Date [facility] Connection, [facility]Doc [facility] [place] [address] PCP - General 09/25/24
--- OUTSIDE RECORDS SUMMARY | 2025-05-25 19:33 | XMS_ITS | Patient Health Record ---
Author Organization [facility] [place] Address [address] [place] [address] Care Team Providers Care Bait Digger Name Role Phone CHESTER ALVAREZ Primary Care Provider Chester Alvarez MD Unavailable Unavailable Allergies No Known Allergies Reason For Referral No Information Medications Medication SIG (Take, Route, Frequency, Duration) Notes Start Date End Date Status medroxyPROGESTERone Acetate 150 MG/ML 1 ml Intramuscular every three months for 90 days 02/24/2021 Active Augmentin 500-125 MG 1 tablet Orally omer ry 12 hrs for 10 day(s) 10/11/2017 Not-Taking Claritin 10 MG 1 tablet Orally Once a day for 30 day(s) 10/11/2017 Not-Taking Depo-Provera 150 MG/ML 1 ml Intramuscula r Every 3 months Active Problems Problem Type SNOMED Code ICD Code Onset Dates Problem Status W/U Status Risk Notes Problem Anxiety state (976645473) Anxiety state (F41.1) Active confirmed Problem Dysmenorrhea (644278968) Dysmenorrhea in adolescent (N94.6) Active confirmed Plan Of Treatment Pending Test Test Name Order Date SARS-CoV-2, LILIA 09/22/2021 Insurance Providers Payer Name Payer Address Payer Phone Subscriber Number Group Number Insured Name Patient Relationship to Insured Coverage Start Date Coverage End Date [employer] MED[employer]-[place] [address] [place] [address] [id number] Kemi Ferrera Self - patient is the insured Medical (General) History Medical History History ICD Code No significant medical history reported (Hero) Surgical History Surgery Date(Month/Year) OTHER
[2025-05-25 19:41] VITALS: BP 125/70; PULSE 91; RESP 16; TEMP 37.2; O2SAT 99; BMI 22.8
--- NOTE | 2025-05-25 19:47 | HMH.EDGENADL ---
Discharge Plan Disposition Patient Disposition: Home, Self-Care Prescriptions Prescriptions: New methocarbamol 750 mg tablet 750 mg PO Q8H PRN (Reason: muscle spasm) Qty: 45 0RF No Action medroxyprogesterone [Depo-Provera Contraceptive] 150 mg/mL Suspension 1 mg IM DIRECTED Referrals Follow up/Referrals: Shahid Jensen MD [Primary Care Provider, Medical] - See instructions Activity Restrictions/Add. Instructions Additional Instructions/Restrictions: Follow-up with your primary care physician as needed. You will likely be sore over the next 2 to 3 days until symptoms resolved. You can take Tylenol, ibuprofen and the Robaxin to help with your symptoms. If you develop any new or worsening symptoms, or if you become concerned for your health for any reason, return to the emergency department for evaluation peer Clinical Impressions Clinical Impression: Neck pain on left side, Headache Print Language Print Language: Nigerian Discharge ED Provider: Gregory Landis Adult HPI General Chief complaint: Headache Stated complaint: NEWSOME 3 days,nausea Time Seen by Provider: 05/25/25 19:34 Mode of Arrival: Ambulatory Source of Information: Patient Limitations: No Limitations History of Present Illness HPI narrative: Kemi Ferrera is a 19y female with a past medical history of migraine headaches who presents to the emergency department for complaints of a left sided headache and neck pain. Patient states that on Monday, she had sudden sharp left-sided headache that improved on Monday. However today, prior to arrival, she was picking up a laundry basket and developed sudden onset sharp left-sided neck pain that radiates to the left side of her head. She reports nausea with it but no vomiting. She states that she tried her Imitrex and ibuprofen at home without relief. She does state that pain is worse when she tries to move her neck to the left. She denies any trauma. She denies any photosensitivity or phono sensitivity. Related Data Home Medications ?Medication ?Instructions ?Recorded ?Confirmed medroxyprogesterone 150 mg/mL 1 mg IM DIRECTED b/c 11/29/23 06/29/24 intramuscular suspension Previous Rx's ?Medication ?Instructions ?Recorded methocarbamol 750 mg tablet 750 mg PO Q8H PRN muscle spasm #45 05/25/25 tabs Allergies Allergy/AdvReac Type Severity Reaction Status Date / Time No Known Allergies Allergy Verified 02/19/24 10:51 [facility] Disclaimer: The information contained in this section may have been updated after the patient was seen, as this information can be updated by other users. Medical History , [employer]) Depression Anxiety Migraine Surgical History , [employer]) History of tympanostomy tube placement Social History , [employer]) Smoking Status: Unknown if ever smoked alcohol intake: never current occupational status: student Travel in the last 8 weeks?: None current occupation: student Have you lived/traveled outside [place] in past 30 days?: No Contact w/someone who lives/traveled outside [place] past 30 days?: No Exposure to someone with infectious disease in past 14 days?: No Do you have a fever (greater than 100.4 F or 38 C)?: No Have you tested positive for COVID-19?: No Exposed to someone with COVID-19 in past 14 days?: No Do you have a sore throat?: No Do you have a cough?: No Do you have any weakness?: No Do you have any diarrhea?: No Are you experiencing any unusual bleeding?: No Do you have any muscle aches/pain?: No Do you have any abdominal pain?: No Are you experiencing loss of taste or smell?: No ROS Obtained: Yes Systems reviewed as appropriate & no additional complaints except as documented Physical Exam General General appearance: alert and in no apparent distress Head Head exam: atraumatic Eye Eye exam: Present normal appearance, PERRL and EOMI ENT ENT exam: Present normal external ear exam Neck Neck exam: Present full ROM Chest Chest inspection: Present symmetric chest wall rise Respiratory Respiratory exam: Present normal lung sounds bilaterally; Absent respiratory distress Cardiovascular Cardiovascular exam: Present regular rate and normal rhythm Abdominal Exam Abdominal exam: Present soft; Absent tenderness or guarding Extremities Exam Extremities exam: Present normal inspection Back Exam Back exam: Present normal inspection Neurological Exam Neurological exam: Present alert, oriented X3 and other (No focal neurological deficits) Psychiatric Psychiatric exam: Present normal affect Skin Skin exam: Present warm and dry Medical Decision Making Medical Records Screening: Per USPSTF and CDC recommendations, given the prevalence of disease in our region, it is our hospital?s policy to screen for HIV and viral Hepatitis for all patients aged 18 and over and those with ongoing risk factors. Miguel Inquiry Pt receiving controlled substance: No Vital Signs: 05/25/25 19:41 05/25/25 21:21 Temperature 98.9 F 97.9 F Temperature Source Oral Oral Pulse Rate 67 Pulse Rate [Left] 91 H Respiratory Rate 16 18 Blood Pressure 108/67 L Blood Pressure [Right Arm] 125/70 Blood Pressure Mean [Right Arm] 88 Blood Pressure Source Automatic Cuff Blood Pressure Position Sitting 02 Sat by Pulse Oximetry 99 Oxygen Delivery Method Room Air Lab Data Lab Results 05/25/25 19:37: Urine HCG, Qual Negative 05/25/25 19:56: HCV Ab JC w/Rflx PCR Qn Negative, HIV Ag/Ab Combo Qual Negative Orders (Tests/Meds): ED MEDICATIONS Discontinued Medications Generic Name Dose Route Start Last Admin Trade Name Freq PRN Reason Stop Dose Admin Acetaminophen 1,000 mg 05/25/25 19:46 05/25/25 20:09 Acetaminophen 500mg Tab PO 05/25/25 19:47 1,000 mg ONCE ONE Administration Diphenhydramine HCl 25 mg 05/25/25 19:46 05/25/25 20:08 Diphenhydramine 50mg/Ml Vial IV 05/25/25 19:47 25 mg ONCE ONE Administration Diphenhydramine HCl 25 mg 05/25/25 20:25 05/25/25 20:27 Diphenhydramine 50mg/Ml Vial IV 05/25/25 20:26 25 mg ONCE ONE Administration Lactated Ringer's 500 mls @ 999 mls/hr 05/25/25 19:46 05/25/25 20:08 Lactated Ringer's 1000 Ml Bag IV 05/25/25 20:16 999 mls/hr .Q31M ONE Administration Prochlorperazine Edisylate 10 mg 05/25/25 19:46 05/25/25 20:09 Prochlorperazine 10mg/2ml Vial IV 05/25/25 19:47 10 mg ONCE ONE Administration ORDERS Category Date Time Status HIV Combo Stat Lab 05/25/25 19:56 Completed Hepatitis C Ab Qual. W/ RFX Stat Lab 05/25/25 19:56 Completed Urine , HCG Qual. Stat Lab 05/25/25 19:37 Completed Medical Decision Narrative: Kemi Ferrera is a 19y female with a past medical history of migraine headaches who presents to the emergency department for complaints of a left sided headache and neck pain. Patient states that on Monday, she had sudden sharp left-sided headache that improved on Monday. However today, prior to arrival, she was picking up a laundry basket and developed sudden onset sharp left-sided neck pain that radiates to the left side of her head. She reports nausea with it but no vomiting. She states that she tried her Imitrex and ibuprofen at home without relief. She does state that pain is worse when she tries to move her neck to the left. She denies any trauma. She denies any photosensitivity or phono sensitivity. On arrival, patient is hemodynamically stable, in no acute respiratory distress, afebrile, breathing comfortably on room air with appropriate oxygen saturation. Physical exam, as stated above, revealed an overall well-appearing female. She is alert, oriented and in no distress. She has full range of motion of the neck without meningismus. No midline cervical spine tenderness. Pupils equal round and reactive to light. Extraocular movements intact with no nystagmus. Cardiopulmonary exam is unremarkable. Differential diagnosis includes, but is not limited to: Muscle strain, occipital migraine, tension headache, among others. There is low concern for meningitis at this time as patient has been afebrile without altered mental status and no meningismus. Lab work and CT imaging of the head were considered, however given nature of patient's complaints and physical exam and reassuring vital signs, is felt that the risk of radiation exposure outweighs the potential benefits. Will treat patient with migraine cocktail, including IV fluids, Compazine, Benadryl, Tylenol. On reassessment, patient reported improvement in her symptoms. Given this, is felt the patient is appropriate for discharge at this time. Encouraged her to take Tylenol and ibuprofen at home and we will also prescribe muscle relaxer as the distribution of her pain is most consistent with a muscle strain. Encouraged her to follow-up with her physician if symptoms do not improve. Return precautions were given. All questions were answered. She demonstrated understanding and was in agreement this plan. She was then discharged from the emergency department in stable condition. Critical Care Critical Care Time Critical Care Time: No
[2025-05-25 20:02] LABS: Urine Pregnancy, HCG Qual. Negative (Negative)
[2025-05-25] MEDS: LACTATED RINGERS 1000ML 500 ML 999 ML IV (20:08)
[2025-05-25] MEDS: PROCHLORPERAZINE 10MG/2ML VIAL 10 MG IV (20:09)
[2025-05-25] MEDS: ACETAMINOPHEN 500MG TAB 1000 MG PO (20:09)
--- NOTE | 2025-05-25 20:23 | PC.NURSE ---
while giving compazine IV, pt had received 1/2 the dose over 1 minute and began to feel shaky all over. arms noted to be shaking. Compazine stopped. Spoke with MD Landis. States to give another 25mg of Benadryl and hold the rest of the Compazine.
--- NOTE | 2025-05-25 20:46 | PC.NURSE ---
pt ambulatory to bathroom at this time. Pt voices she is feeling better at this time
[2025-05-25 21:21] VITALS: BP 108/67; PULSE 67; RESP 18; TEMP 36.6; O2SAT 97
[2025-05-25 21:26] LABS: Hepatitis C Ab Qual. W/ RFX NEGATIVE (Negative)
== END 2025-05-25 21:22 | disposition home or self-care (01) ==
PROVIDERS: Emergency Provider Student in an Organized Health Care Education/Training Program; PCP Pediatrics
DX: M54.2 Cervicalgia (principal); R51.9 Headache, unspecified; R11.0 Nausea
CPT/HCPCS: 81025; 86803; 87389; 96361; 96374; 96375; 99284; J0780; J1200; J7120